=== PATIENT | male | born 1955 | race Caucasian/White ===

== ENCOUNTER 2017-01-01 12:09 | Emergency (ER) | payer OTHER ==
[~2017-01-01] VITALS: Ht 185.4 cm; Wt 87.1 kg
--- NOTE | 2017-01-01 12:53 | NUR ---
PT REFUSED TO BE EVALUATED BY MD AND PT DECIDED TO GO, PT AMBULATED W/O DIFF.
== END 2017-01-01 12:50 | disposition left against medical advice (07) ==
LOC: ER 12:09
DX: Z53.21 Procedure and treatment not carried out due to patient leaving prior to being seen by health care provider (principal)
CPT/HCPCS: A4663